=== PATIENT | male | born 1945 | race Caucasian/White ===

== ENCOUNTER → 2017-05-30 | Outpatient (CLI) | payer OTHER, SELFPAY ==
[~2017-05-30] MED LIST: ALBIPROI; ALBIPROI INH; ASPI81EC; ASPI81EC PO; ATACAND 4 MG; ATOR10 PO; Aspirin EC81 MG PO; CAND16 PO; CAND4 PO; CARV25 PO; CARV6.25; CITA20; COMBIVENT RESPIM4 GM INH; CYAN1000 PO; FURO20 PO; HYDR1TAB94 PO; LEVFLO500; LORA1; LORA2 PO; LOVA20; LOVA40 PO; METO25ER PO; METR500; MIRT15 PO; MULVITA PO; NITR.4SL; NITR.4SL SL; NITROMIST4.1 GM PO; PERI4; PERI4 PO; PROACE100 PO; Percocet 5-3251 EACH PO; QUET200 PO; QUET300 PO; ROSU5 PO; SPIR25; SPIR25 PO; VALS80; VALS80 PO; VENL150ER PO
== END | disposition home or self-care (01) ==
LOC: PLD 07:20 → LAB SHORT 07:20
DX: L97.119 Non-pressure chronic ulcer of right thigh with unspecified severity (principal)
CPT/HCPCS: 88305; 88312

== ENCOUNTER 2017-10-19 09:53 | Day surgery (SDC) | payer OTHER, SELFPAY ==
[~2017-10-19] VITALS: Ht 172.7 cm; Wt 76.4 kg
[~2017-10-19 09:53] MED LIST changes: -CAND16 PO; -COMBIVENT RESPIM4 GM INH; -Percocet 5-3251 EACH PO; -VALS80 PO
[2017-10-19] MEDS ORDERED: COMBIVENT RESPIM4 GM INH (10:26)
[2017-10-19] MEDS ORDERED: VALS80 PO (10:27)
[2017-10-19] MEDS ORDERED: Percocet 5-3251 EACH PO (10:29)
[2017-10-19] MEDS ORDERED: CAND16 PO (10:30)
== END 2017-10-19 11:41 | disposition home or self-care (01) ==
LOC: ORSCSDS 09:53
PROVIDERS: Anesthesiology
PROC: 3E0R33Z Introduction of Anti-inflammatory into Spinal Canal, Percutaneous Approach (ICD-10-PCS; principal; 2017-10-19 11:00)
DX: M51.16 Intervertebral disc disorders with radiculopathy, lumbar region (principal); F17.210 Nicotine dependence, cigarettes, uncomplicated; Z79.82 Long term (current) use of aspirin; I10 Essential (primary) hypertension; I25.10 Atherosclerotic heart disease of native coronary artery without angina pectoris; F32.9 Major depressive disorder, single episode, unspecified; Z79.899 Other long term (current) drug therapy
CPT/HCPCS: J1040

== ENCOUNTER → 2017-12-20 | Outpatient (CLI) | payer OTHER, SELFPAY ==
[~2017-12-20] MED LIST changes: +CAND16 PO; +COMBIVENT RESPIM4 GM INH; +Percocet 5-3251 EACH PO; +VALS80 PO
== END | disposition home or self-care (01) ==
LOC: LAB SHORT 08:17 → PLD 08:17
DX: L28.1 Prurigo nodularis (principal)
CPT/HCPCS: 88305

== ENCOUNTER 2018-05-27 17:31 | Emergency (ER) | payer OTHER ==
[~2018-05-27] VITALS: Ht 152.4 cm; Wt 68.0 kg
[2018-05-27 18:22] LABS: BASOPHILS ABSOLUTE AUTO 0.04 K/mm3 (0.00-0.23); BASOPHILS PERCENT AUTO 1 % (0-2); EOSINOPHILS ABSOLUTE AUTO 0.11 K/mm3 (0.00-0.68); EOSINOPHILS PERCENT AUTO 1 % (0-6); Hematocrit 43.5 % (37.0-53.0); IMMATURE GRAN ABSOLUTE AUTO 0.01 K/mm3 (0.00-0.10); IMMATURE GRAN PERCENT AUTO 0 % (0-1); LYMPHOCYTES ABSOLUTE AUTO 1.39 K/mm3 (0.84-5.20); LYMPHOCYTES PERCENT AUTO 18 % (21-46); MONOCYTES ABSOLUTE AUTO 1.17 K/mm3 (0.16-1.47); MONOCYTES PERCENT AUTO 15 % (4-13); Mean Corpuscular HGB 33.1 pg (26.0-34.0); Mean Corpuscular HGB Conc 34.5 g/dL (31.5-36.5); Mean Corpuscular Volume 96 fL (80-100); Mean Platelet Volume 10.1 fL (9.1-12.4); NEUTROPHILS ABSOLUTE AUTO 5.08 K/mm3 (1.96-9.15); NEUTROPHILS PERCENT AUTO 65 % (41-73); Platelet Count 131 K/mm3 (150-400); RDW Coefficient Variation 13.7 % (11.7-14.2); Red Blood Cell Count 4.53 M/mm3 (4.30-5.90)
[2018-05-27 18:44] LABS: Troponin I <0.015 ng/mL (0.000-0.040)
[2018-05-27 18:48] LABS: Alanine Aminotransfer (ALT/SGP 35 U/L (12-78); Albumin, Blood 3.9 g/dL (3.4-5.0); Albumin/Globulin Ratio 1.1 (0.8-1.8); Alk Phos 68 U/L (50-136); Anion Gap 5 mmol/L (6-16); Aspartate Aminotrans (AST/SGOT 34 U/L (12-37); Bilirubin, Total 0.4 mg/dL (0.1-1.0); Blood Urea Nitrogen 23 mg/dL (8-24); Bun/Creatinine Ratio 24.1 (12.0-20.0); CO2, Blood 29 mmol/L (21-32); Calcium, Blood 8.5 mg/dL (8.5-10.1); Chloride, Blood 97 mmol/L (98-108); Creatinine, Blood 0.95 mg/dL (0.60-1.20); Globulin, Blood 3.4 g/dL (2.2-4.0); Glomerular Filtration Rate >60 (60-); Glucose, Blood 113 mg/dL (70-99); Potassium, Blood 4.4 mmol/L (3.5-5.5); Sodium, Blood 131 mmol/L (136-145); Total Protein, Blood 7.3 g/dL (6.4-8.2)
[2018-05-27] MEDS ORDERED: Zithromax250 MG PO (19:49)
[2018-05-27] MEDS ORDERED: (None)20 M1 PO (19:49)
== END 2018-05-27 19:59 | disposition home or self-care (01) ==
LOC: ER 17:31
PROVIDERS: Physician Assistant
DX: J44.1 Chronic obstructive pulmonary disease with (acute) exacerbation (principal); I25.2 Old myocardial infarction; I25.10 Atherosclerotic heart disease of native coronary artery without angina pectoris; E78.5 Hyperlipidemia, unspecified; I10 Essential (primary) hypertension; F17.210 Nicotine dependence, cigarettes, uncomplicated; Z88.2 Allergy status to sulfonamides; Z79.899 Other long term (current) drug therapy
CPT/HCPCS: 36415; 71046; 80053; 84484; 85025; 93005; 93010; 94640; 94664; 96374; 99284-25; J2930

== ENCOUNTER → 2019-11-19 | Outpatient (CLI) | payer OTHER ==
[~2019-11-19] MED LIST changes: +(None)20 M1 PO; +Zithromax250 MG PO
[2019-11-19 17:31] LABS: Bilirubin, Urine Neg (Neg); Blood, Urine Neg (Neg); Glucose Qualitative, Urine Neg (Neg); Ketones, Urine Neg (Neg); Leukocyte Esterase, Urine Neg (Neg); Nitrite, Urine Neg (Neg); Protein, Urine Neg (Neg); Specific Gravity, Urine 1.025 (1.003-1.022); Urobilinogen, Urine 1+ (Normal)
[2019-11-19 17:43] LABS: Color, Urine Yellow (P-Yellow)
[2019-11-19 17:44] LABS: Appearance, Urine Cloudy (Clear)
[2019-11-19 17:45] LABS: Amorphous Heavy (0-Heavy); Calcium Oxalate Crystals Few /hpf
[2019-11-19 17:46] LABS: Bacteria Few /hpf; Red Blood Cells, Urine Not Seen /hpf (0-2); Squamous Epithelial Cells Not Seen /hpf (Few); White Blood Cells, Urine Not Seen /hpf (0-5)
== END | disposition home or self-care (01) ==
LOC: LAB SHORT 12:45 → LAB 12:45 → LAB FUT 11-14 17:00
PROVIDERS: Internal Medicine
DX: R10.9 Unspecified abdominal pain (principal)
CPT/HCPCS: 81001; 81003

== ENCOUNTER → 2020-06-17 | Outpatient (CLI) | payer OTHER | END | disposition home or self-care (01) | LOC: LAB SHORT 07:52 → PLD 07:52 | DX: D04.61 Carcinoma in situ of skin of right upper limb, including shoulder (principal) | CPT/HCPCS: 88305 ==

== ENCOUNTER → 2020-07-17 | Outpatient (CLI) | payer OTHER | LOC: PLD 09:20 → LAB SHORT 09:20 | DX: C44.622 Squamous cell carcinoma of skin of right upper limb, including shoulder (principal); Z88.2 Allergy status to sulfonamides; Z88.8 Allergy status to other drugs, medicaments and biological substances | CPT/HCPCS: 88305 ==

== ENCOUNTER → 2021-09-30 | Outpatient (CLI) | payer OTHER ==
[2021-10-01 18:25] LABS: Adenovirus F 40/41 Not Detected (NOT DETECT); Astrovirus Not Detected (NOT DETECT); Campylobacter Sp Not Detected (NOT DETECT); Cryptosporidium Not Detected (NOT DETECT); Cyclospora Cayetanensis Not Detected (NOT DETECT); E. Coli O157 Not Detected (NOT DETECT); Entamoeba Histolytica Not Detected (NOT DETECT); Enteroaggregative E. coli-EAEC Not Detected (NOT DETECT); Enteropathogenic E. coli-EPEC Not Detected (NOT DETECT); Enterotoxigenic E. coli-ETEC Not Detected (NOT DETECT); Giardia Lamblia Not Detected (NOT DETECT); Norovirus GI/GII Not Detected (NOT DETECT); Plesiomonas Shigelloides Not Detected (NOT DETECT); Rotavirus A Not Detected (NOT DETECT); Salmonella Sp Not Detected (NOT DETECT); Sapovirus Not Detected (NOT DETECT); Shiga Toxin-prod E. coli-STEC Not Detected (NOT DETECT); Shigella/Enteroin E. coli-EIEC Not Detected (NOT DETECT); Vibrio Cholerae Not Detected (NOT DETECT); Vibrio Sp Not Detected (NOT DETECT); Yersinia Enterocolitica Not Detected (NOT DETECT)
== END | disposition home or self-care (01) ==
LOC: LAB SHORT 12:52 → LAB 12:52 → LAB SHORT 10-01 12:52 → LAB FUT 09-10 14:10
PROVIDERS: Internal Medicine
DX: R19.7 Diarrhea, unspecified (principal)
CPT/HCPCS: 87507

== ENCOUNTER → 2021-10-01 | Outpatient (CLI) | payer OTHER | END | disposition home or self-care (01) | LOC: LAB SHORT 12:21 → LAB 12:21 | DX: D18.01 Hemangioma of skin and subcutaneous tissue (principal) | CPT/HCPCS: 88305 ==

== ENCOUNTER 2021-11-26 09:41 | Day surgery (SDC) | payer OTHER ==
[~2021-11-26] VITALS: Ht 172.7 cm; Wt 80.0 kg
[~2021-11-26 09:41] MED LIST changes: +Amiodarone HCl200 MG PO; +Buspirone HCl15 MG PO
--- NOTE | 2021-11-26 17:50 | NUR ---
PATIENT AND STEP SON VERBALIZED UNDERSTANDING OF DISCHARGE INSTRUCTIONS AND PRECAUTIONS. TR BAND REMOVED AND CLOTH DOT PLACED TO RIGHT RADIAL SITE. WRIST BOARD IN PLACE TO RIGHT WRIST. SITE SOFT AND NONTENDER. NO HEMATOMA, NO BLEEDING. IV SITE DECED WITH CATHETER INTACT. ARM SLING PLACED TO HELP PATIENT REMEMBER NOT TO USE RIGHT WRIST WITH INSTRUCTION.NO FURTHER QUESTIONS. PATIENT TRANSFERRED TO WAITING CAR VIA WHEEL CHAIR. STEP SON DRIVING.
== END 2021-11-26 17:00 | disposition home or self-care (01) ==
LOC: MHTC 09:41
DX: I25.10 Atherosclerotic heart disease of native coronary artery without angina pectoris (principal); I25.82 Chronic total occlusion of coronary artery; I11.0 Hypertensive heart disease with heart failure; I50.9 Heart failure, unspecified; E78.5 Hyperlipidemia, unspecified; I48.0 Paroxysmal atrial fibrillation; J44.9 Chronic obstructive pulmonary disease, unspecified; I42.8 Other cardiomyopathies; Z85.46 Personal history of malignant neoplasm of prostate; Z79.01 Long term (current) use of anticoagulants
CPT/HCPCS: 76937; 93454; 99152; 99153; C1769; C1887; C1894; J1644; J2250; J3010; J7030; J7040; Q9967

== ENCOUNTER 2022-07-20 06:58 | Day surgery (SDC) | payer OTHER ==
[~2022-07-20] VITALS: Ht 172.7 cm; Wt 71.7 kg
[~2022-07-20 06:58] MED LIST changes: +ALBU90OI INH; +Carvedilol12.5 MG PO; +ELIQUIS5 M2 PO; +FLUT1DIS2 INH; +TRAZ100 PO
[2022-07-20] MEDS ORDERED: Keflex500 MG PO (11:07)
--- NOTE | 2022-07-20 11:55 | NUR ---
PT UP AND DRESSED, SALINE LOCK REMOVED WITH CATHETER INTACT. DISCHARGE REVIEWED WITH PT AND SON, DAUGHTER ON PHONE. ALL VERBALIZE UNDERSTANDING OF INSTRUCTIONS. WOUND CHECK APPT RESCHEDULED FOR 1 WEEK FROM PROCEDURE PER CARDIOLOGY OFFICE. PT DISCHARGED PER W/C WITH VOLUNTEER ATTENDANT.
== END 2022-07-20 11:45 | disposition home or self-care (01) ==
LOC: MHTC 06:58
DX: Z45.02 Encounter for adjustment and management of automatic implantable cardiac defibrillator (principal); Z88.8 Allergy status to other drugs, medicaments and biological substances; Z88.2 Allergy status to sulfonamides; I25.10 Atherosclerotic heart disease of native coronary artery without angina pectoris; I48.0 Paroxysmal atrial fibrillation
CPT/HCPCS: 33222; 33264; 99152; 99153; C1781; C1882; J0690; J1644; J2250; J3010; J7030; J7040

== ENCOUNTER 2023-05-14 10:30 | Emergency (ER) | payer OTHER ==
[~2023-05-14] VITALS: Ht 175.3 cm; Wt 72.6 kg
[~2023-05-14 10:30] MED LIST changes: +Keflex500 MG PO
[2023-05-14 11:05] LABS: BASOPHILS ABSOLUTE AUTO 0.07 K/mm3 (0.00-0.23); BASOPHILS PERCENT AUTO 1 % (0-2); EOSINOPHILS PERCENT AUTO 1 % (0-6); Hematocrit 36.6 % (37.0-53.0); Hemoglobin 12.8 g/dL (13.5-17.5); IMMATURE GRAN ABSOLUTE AUTO 0.08 K/mm3 (0.00-0.10); IMMATURE GRAN PERCENT AUTO 1 % (0-1); LYMPHOCYTES ABSOLUTE AUTO 4.03 K/mm3 (0.84-5.20); LYMPHOCYTES PERCENT AUTO 27 % (21-46); MONOCYTES ABSOLUTE AUTO 1.27 K/mm3 (0.16-1.47); MONOCYTES PERCENT AUTO 8 % (4-13); Mean Corpuscular HGB 34.9 pg (26.0-34.0); Mean Corpuscular Volume 100 fL (80-100); Mean Platelet Volume 10.1 fL (9.1-12.4); NEUTROPHILS ABSOLUTE AUTO 9.38 K/mm3 (1.96-9.15); NEUTROPHILS PERCENT AUTO 63 % (41-73); Platelet Count 209 K/mm3 (150-400); RDW Coefficient Variation 13.3 % (11.7-14.2); RDW Standard Deviation 49.1 fL (35.1-46.3); Red Blood Cell Count 3.67 M/mm3 (4.30-5.90); White Blood Cell Count 15.03 K/mm3 (4.00-11.30)
[2023-05-14 11:22] LABS: International Normalized Ratio 1.07; Prothrombin Time Results 11.2 Sec (9.7-11.5)
[2023-05-14 11:23] LABS: Bun/Creatinine Ratio 24.1 (12.0-20.0); Calcium, Blood 8.2 mg/dL (8.5-10.1); Creatinine, Blood 0.91 mg/dL (0.60-1.20); Magnesium, Blood 1.6 mg/dL (1.6-2.4); Potassium, Blood 4.2 mmol/L (3.5-5.5)
[2023-05-14 13:00] VITALS: BP 148/89
[2023-05-14 16:37] LABS: Source, Urine Foley catheter
[2023-05-14 16:41] LABS: Appearance, Urine Clear (Clear); Bilirubin, Urine Neg (Neg); Blood, Urine Neg (Neg); Color, Urine Yellow (P-Yellow); Glucose Qualitative, Urine Neg (Neg); Ketones, Urine Neg (Neg); Leukocyte Esterase, Urine Neg (Neg); Nitrite, Urine Neg (Neg); Protein, Urine 1+ (Neg); Urobilinogen, Urine NORM (Normal)
== END 2023-05-14 14:06 | disposition short-term general hospital (02) ==
LOC: ER 10:30
PROVIDERS: Student in an Organized Health Care Education/Training Program
DX: T21.03XA Burn of unspecified degree of upper back, initial encounter (principal); T20.05XA Burn of unspecified degree of scalp [any part], initial encounter; T20.00XA Burn of unspecified degree of head, face, and neck, unspecified site, initial encounter; T23.002A Burn of unspecified degree of left hand, unspecified site, initial encounter; T23.001A Burn of unspecified degree of right hand, unspecified site, initial encounter; T22.052A Burn of unspecified degree of left shoulder, initial encounter; T22.051A Burn of unspecified degree of right shoulder, initial encounter; T31.22 Burns involving 20-29% of body surface with 20-29% third degree burns; J39.2 Other diseases of pharynx; J38.4 Edema of larynx; J98.01 Acute bronchospasm; X00.0XXA Exposure to flames in uncontrolled fire in building or structure, initial encounter; Y92.009 Unspecified place in unspecified non-institutional (private) residence as the place of occurrence of the external cause; Z88.2 Allergy status to sulfonamides; Z88.8 Allergy status to other drugs, medicaments and biological substances; Z79.899 Other long term (current) drug therapy; Z79.01 Long term (current) use of anticoagulants
CPT/HCPCS: 31500; 51702; 71045; 80048; 82375; 83605; 83735; 85025; 85610; 85730; 86850; 86900; 86901; 90471; 90714; 94002; 94644; 94664; 96361-59; 96374-59; 96375-59; 99291-25; G0390; J2250; J2704; J3010; J7030; J7120